=== PATIENT | male | born 1965 | race Caucasian/White ===

== ENCOUNTER → 2016-11-18 16:55 | Outpatient (CLI) | payer MEDICAID ==
[2016-11-18 20:36] LABS: CHOL - HDL RATIO 4.4 ratio (2.3-4.9)
== END | disposition home or self-care (01) ==
LOC: D.LABREF 16:55
PROVIDERS: Internal Medicine Cardiovascular Disease
DX: E78.5 Hyperlipidemia, unspecified (principal)